=== PATIENT | female | born 1980 | race Caucasian/White ===

== ENCOUNTER → 2020-07-22 08:01 | Outpatient (CLI) | payer BC, SELFPAY ==
[2020-07-22 19:41] LABS: SARS-CoV-2 RNA PCR Negative
== END ==
PROVIDERS: Visit Provider Dermatology
DX: R05 Cough (principal); Z20.822 Contact with and (suspected) exposure to COVID-19
CPT/HCPCS: C9803; U0003; U0005

== ENCOUNTER 2022-09-23 12:32 | Outpatient (CLI) | payer OTHER, SELFPAY ==
[2022-09-23 18:16] LABS: Basophils Absolute Auto 0.1 K/mm3 (0.0-0.1); Basophils Percent Auto 1.1 % (0.2-1.2); Eosinophils Absolute Auto 0.2 K/mm3 (0-0.3); Eosinophils Percent Auto 2.8 % (0-4.4); Hematocrit 41.1 % (37.0-47.0); Hemoglobin 12.4 g/dL (12.0-15.0); Immature Granulocyte Absolute 0.02 K/mm3 (0.00-0.031); Immature Granulocyte Percent A 0.2 % (0-0.5); Lymphocytes Absolute Auto 3.08 K/mm3 (0.9-3.2); Lymphocytes Percent Auto 36.4 % (18.3-44.2); Mean Corpuscular HGB Conc 30.2 g/dl (32-36); Mean Corpuscular Hemoglobin 26.1 pg (26-34); Mean Corpuscular Volume 86.3 fl (80-100); Mean Platelet Volume 11.8 fl (7.4-10.4); Monocytes Absolute Auto 0.6 K/mm3 (0.1-0.6); Monocytes Percent Auto 7.6 % (2.6-8.5); Neutrophils Absolute Auto 4.4 K/mm3 (1.3-6.7); Neutrophils Percent Auto 51.9 % (45.5-73.1); Platelet Count Result 369 k/mm3 (150-375); Red Blood Count 4.76 M/mm3 (4.2-5.4); Red Cell Distribution Width 14.3 % (11.5-14.5); White Blood Count 8.5 K/mm3 (4.5-10.0)
[2022-09-23 18:24] LABS: Alanine Aminotransferase 24 U/L (6-35); Alkaline Phosphatase 71 U/L (38-126); Anion Gap 8 mmol/L (8-16); Aspartate Amino Transferase 45 U/L (14-36); Bilirubin,Total 0.6 mg/dL (0.2-1.3); Blood Urea Nitrogen 14 mg/dL (7-17); Calcium 8.6 mg/dL (8.4-10.2); Carbon Dioxide 25 mmol/L (22-30); Chloride 101 mmol/L (98-107); Cholesterol 179 mg/dL (0-200); Estimated Glomerular Filt Rate > 60; Glucose 69 mg/dL (65-110); HDL Direct 44 mg/dL; Potassium 3.7 mmol/L (3.4-5.0); Sodium 134 mmol/L (137-145); Triglycerides 86 mg/dL (<150)
[2022-09-23 18:36] LABS: LDL Cholesterol Direct 102 mg/dL
[2022-09-23 18:44] LABS: Free T4 Free Thyroxine 1.16 ng/mL (0.78-2.19); Vitamin D 25 Hydroxy 26.7 ng/mL
[2022-09-28 04:44] LABS: Thyroid Peroxidase Antibodies 549 IU/mL (<9)
[2022-09-28 04:54] LABS: Triiodothyronine T3 Free 3.4 pg/mL (2.3-4.2)
== END 2022-09-23 12:33 | disposition home or self-care (01) ==
LOC: ANHGOSHLAB 12:33
PROVIDERS: PCP Internal Medicine; Visit Provider Nurse Practitioner
DX: E07.9 Disorder of thyroid, unspecified (principal); Z13.220 Encounter for screening for lipoid disorders; Z86.2 Personal history of diseases of the blood and blood-forming organs and certain disorders involving the immune mechanism
CPT/HCPCS: 36415; 80053; 80061; 82306; 82728; 84439; 84443; 84481; 85025; 86376

== ENCOUNTER 2023-09-14 15:01 | Outpatient (CLI) | payer OTHER, SELFPAY | END 2023-09-14 15:02 | disposition home or self-care (01) | LOC: ANHGOSHLAB 15:02 | PROVIDERS: PCP Internal Medicine; Visit Provider Nurse Practitioner | DX: G47.61 Periodic limb movement disorder (principal) | CPT/HCPCS: 36415; 82728 ==

== ENCOUNTER 2024-01-10 07:42 | Emergency (ER) | payer OTHER, SELFPAY ==
--- NOTE | ~2024-01-10 | CT_ITS ---
EXAMINATION: CT abdomen pelvis w con DATE: 01/10/2024 09:11 INDICATION: Left upper quadrant abdominal pain. TECHNIQUE: Computed tomography (CT) of the abdomen and pelvis was performed with 100 mL Omnipaque 350 intravenous contrast. Automated exposure control and iterative reconstruction technique were employe d. The dose-length product was 743.25 mGy-cm. COMPARISON: None. FINDINGS: The visualized portions of the lung bases demonstrate mild atelectasis. No pleural effusion . The heart size is normal. No pericardial effusion. There are cysts in the liver measuring up to 3 m m. The pancreatic duct is dilated to 3 mm in the tail of the pancreas. The gallbladder, spleen, adren al glands, and kidneys are normal. There are surgical clips from tubal ligation. There are no dilated loops of bowel. The appendix measures 7 mm in diameter without adjacent fat stranding to suggest inf lammation. There are no pathologically enlarged lymph nodes. There is physiologic fluid in the pelvis . There is a 19 mm corpus luteum cyst in left ovary. There is moderate lower lumbar spondylosis. IMPRESSION: 1. Mildly dilated pancreatic duct in the tail of the pancreas, most likely chronic pancreatitis. Occu lt obstructing mass is not excluded. Consider MRCP without and with contrast. Reviewed, dictated and finalized at location A. IMPRESSION: 1. Mildly dilated pancreatic duct in the tail of the pancreas, most likely tape controlled machine stitcher lucy pancreatitis. Occult obstructing mass is not excluded. Consider MRCP withou t and with contrast.
[2024-01-10 07:43] VITALS: BP 136/80; PULSE 85; RESP 16; TEMP 36.7; O2SAT 100
[2024-01-10 08:17] LABS: Basophils Absolute Auto 0.1 K/mm3 (0.0-0.1); Basophils Percent Auto 1.2 % (0.2-1.2); Eosinophils Absolute Auto 0.3 K/mm3 (0-0.3); Eosinophils Percent Auto 4.1 % (0-4.4); Hematocrit 43.9 % (37.0-47.0); Hemoglobin 13.7 g/dL (12.0-15.0); Immature Granulocyte Absolute 0.02 K/mm3 (0.00-0.031); Immature Granulocyte Percent A 0.2 % (0-0.5); Lymphocytes Absolute Auto 2.42 K/mm3 (0.9-3.2); Lymphocytes Percent Auto 29.3 % (18.3-44.2); Mean Corpuscular HGB Conc 31.2 g/dl (32-36); Mean Corpuscular Volume 86.4 fl (80-100); Mean Platelet Volume 11.3 fl (7.4-10.4); Monocytes Absolute Auto 0.6 K/mm3 (0.1-0.6); Neutrophils Absolute Auto 4.8 K/mm3 (1.3-6.7); Neutrophils Percent Auto 58.2 % (45.5-73.1); Platelet Count Result 349 k/mm3 (150-375); Red Blood Count 5.08 M/mm3 (4.2-5.4); Red Cell Distribution Width 13.9 % (11.5-14.5); White Blood Count 8.3 K/mm3 (4.5-10.0)
[2024-01-10 08:21] LABS: Add Urine Microscopic? YES; Appearance Urine Clear (Clear); Bacteria Urine 3+ /hpf; Bilirubin Urine Negative (Negative); Blood Urine Negative (Negative); Color Urine Yellow (Yellow); Glucose Urine UA Negative (Negative); Ketones Urine Negative (Negative); Leukocyte Esterase Ur 1+ LEU/UL (Negative); Nitrate Urine Negative (Negative); Non Pathogenic Casts 0-2; Protein Urine Negative (Negative); Specific Grav Ur 1.023 (1.001-1.035); Squamous Epithelial Cell Urine Few /hpf (Few); Urobilinogen Urine 0.2 mg/dL (<2.0); pH Urine 7.5 (5.0-9.0)
--- NOTE | 2024-01-10 08:25 | ED.ABDPAIN ---
HPI - Abdominal Pain General Chief Complaint: Abdominal Pain Stated Complaint: abdominal pain Time Seen by Provider: 01/10/24 07:51 History of Present Illness HPI narrative: 43-year-old female presenting to the emergency department for evaluation for left upper quadrant pain. Patient states the symptoms started on Monday. Patient states symptoms are worsened with food. Patient does admit to drinking alcohol on the weekends but did not drink heavily this weekend. Patient had this been taking some ibuprofen and naproxen over the last few days. Patient denies any prior history of gastritis. Patient denies any prior history of kidney stones. Patient still has her gallbladder. Patient does complain of pain and nausea. Patient declined any medications for pain control Related Data Home Medications Medication Instructions Recorded Confirmed cetirizine 10 mg capsule (Zyrtec) 10 mg PO DAILY PRN 09/02/22 09/02/22 Allergies Allergy/AdvReac Type Severity Reaction Status Date / Time No Known Allergies Allergy Verified 01/10/24 07:42 Review of Systems Review of Systems: All systems reviewed & are unremarkable except as noted in HPI and below PMFSH Social History Social History (Updated 09/02/22 @ 14:36 by Dannielle Bashir, [facility]) Smoking status: Former smoker Tobacco type: e-cigarettes/vaping Additional smoking assessment comments: patient vapes Exam Narrative: APPEARANCE: Well appearing, no pain, no distress, well-nourished. HEAD: normocephalic, atraumatic. EYES: PERRLA/EOMI, conjunctivae clear. NOSE: Normal no drainage NECK: Supple. No adenopathy, no masses. RESPIRATORY: Airway patent, respirations nonlabored. Clear to auscultation bilaterally, no rales, rhonchi, wheezing. CARDIOVASCULAR: Regular rate and rhythm without murmurs rubs or gallops. ABDOMINAL: Left upper quadrant and epigastric tenderness to palpation MUSCULOSKELETAL: Moves all extremities. Strength/ROM intact, No edema, No calf tenderness. NEURO: Alert. Cranial nerves II through XII intact. Grossly intact SKIN: Warm, dry. Normal Color Course Course Emergency Course: Patient was up to the results of her workup and recommended MRCP. Patient's primary care office was called. Vital Signs Vital signs: Vital Signs Temperature 98.0 F 01/10/24 07:43 Pulse Rate 85 01/10/24 07:43 Respiratory Rate 16 01/10/24 07:43 Blood Pressure 136/80 01/10/24 07:43 Pulse Oximetry 100 01/10/24 07:43 Oxygen Delivery Room Air 01/10/24 07:43 Temperature 97.7 F 01/10/24 09:30 Pulse Rate 76 01/10/24 09:30 Respiratory Rate 16 01/10/24 09:30 Blood Pressure 130/80 01/10/24 09:30 Pulse Oximetry 100 01/10/24 09:30 Oxygen Delivery Room Air 01/10/24 07:43 MDM - Abdominal Pain MDM Narrative Medical decision making narrative: 43-year-old female presenting to the ED for evaluation of left upper quadrant pain. Patient was treated with Zofran and Protonix. Patient was afebrile with no leukocytosis and a stable hemoglobin of 13.7. Patient had a normal lipase and patient had no elevation of T bili AST ALT alk-phos. Patient did have bacteria in her urine but denies any urinary symptoms, urine culture was ordered. CT scan did show findings of chronic pancreatitis and did recommend an MRCP. I discussed the case with GI and they were comfortable with the patient having outpatient follow-up for the MRCP. I did call the primary care physician's office and they will help set up the outpatient MRCP. Patient was updated results of the workup patient was comfortable with plan for discharge and close follow-up. All questions concerns were addressed patient was in no distress at time of discharge back patient was advised on dietary restrictions. Differential Diagnosis Differential diagnosis: Likely abdominal pain, acute appendicitis, constipation, diverticulitis, endometriosis, gastroenteritis, pancreatitis and small bowel obstruction Lab
[2024-01-10 08:27] LABS: Alanine Aminotransferase 20 U/L (6-35); Albumin Level 4.4 g/dL (3.5-5.1); Alkaline Phosphatase 57 U/L (38-126); Anion Gap 11 mmol/L (4-12); Aspartate Amino Transferase 24 U/L (14-36); Bilirubin,Total 0.5 mg/dL (0.2-1.3); Blood Urea Nitrogen 18 mg/dL (7-17); Calcium 8.8 mg/dL (8.4-10.2); Carbon Dioxide 22 mmol/L (22-30); Chloride 102 mmol/L (98-107); Estimated Glomerular Filt Rate > 60; Glucose 86 mg/dL (65-110); Lipase 225 U/L (23-300); Potassium 4.1 mmol/L (3.4-5.0); Sodium 135 mmol/L (137-145)
[2024-01-10 08:30] VITALS: BP 132/78; PULSE 74; RESP 16; TEMP 36.6; O2SAT 100
[2024-01-10 08:44] LABS: BEDSIDEPREGUCG Negative
[2024-01-10] MEDS: ONDANSETRON INJ 4 MG/2 ML VIAL IV PUSH (08:48)
[2024-01-10] MEDS: PANTOPRAZOLE SODIUM IV 40 MG VIAL IV PUSH (08:48)
[2024-01-10] MEDS: ACETAMINOPHEN 500 MG TABLET 1000 MG PO (08:56)
[2024-01-10 09:30] VITALS: BP 130/80; PULSE 76; RESP 16; TEMP 36.5; O2SAT 100
== END 2024-01-10 10:12 | disposition home or self-care (01) ==
PROVIDERS: Emergency Provider Emergency Medicine; PCP Internal Medicine
DX: K86.1 Other chronic pancreatitis (principal); R10.12 Left upper quadrant pain; Z87.891 Personal history of nicotine dependence
CPT/HCPCS: 36415; 74177; 80053; 81001; 81025; 83690; 85025; 87086; 96374; 96375; 99284; A9270; J2405; J2470; Q9967

== ENCOUNTER 2024-01-29 09:55 | Outpatient (CLI) | payer OTHER, SELFPAY ==
--- NOTE | ~2024-01-29 | MR_ITS ---
EXAMINATION: MR MRCP wo/w con/w 3D wo ind DATE: 01/29/2024 11:14 INDICATION: Chronic pancreatitis TECHNIQUE: Magnetic resonance imaging (MRI) of the abdomen was performed without and with 15 mL Multi chong intravenous contrast. Sequences included coronal T2-weighted SS-FSE, coronal T2-weighted FS SS- FSE, coronal T2-weighted FS FIESTA, axial T2-weighted FS FIESTA, axial T2-weighted FIESTA, sagittal T 2-weighted SS-FSE, axial T1-weighted dual-echo FSPGR, axial T2-weighted SS-FSE, axial T1-weighted LAV A, axial T2-weighted STIR FSE. Thick-slab T2-weighted FRFSE-XL images were obtained for magnetic reso nance cholangiopancreatography (MRCP). Rotating maximum intensity projection 3-D reconstructions of t he volumetric data were created by the technologist. Postcontrast sequences included a time course of axial T1-weighted LAVA. COMPARISON: CT dated 01/10/2024 FINDINGS: ABDOMEN MRI: Heart size is normal. No pericardial or pleural effusion. Small amount of dependently layering sludge in the otherwise normal-appearing gallbladder. No evident cholelithiasis. Liver, spleen, bilateral a drenal glands and kidneys are normal. Again are a couple dilated pancreatic ducts at the tip of the t ail of the pancreas. No abnormal mass or lesions identified at the transition to the normal caliber m ain pancreatic duct at the body and more proximal tail of the pancreas. There is however an approxima tely 2.4 x 1.2 cm region at the tip of the tail surrounding a portion of the dilated ducts which demo nstrates slightly lower T1 signal and greater degree of enhancement in the remainder of the more prox imal pancreas. This region of soft tissue parallels the spleen terms of T1 and T2 signal intensity an d enhancement. Visualized portion of the bowels are unremarkable. No pathologically enlarged abdomina l lymphadenopathy. Mild thoracic and lumbar spondylosis. ABDOMEN MRCP: Common bile duct is normal in caliber measuring up to 5 mm in maximal diameter tapering the distal co mmon bile duct with no choledocholithiasis. Intrahepatic biliary tree is normal. The main pancreatic duct is normal with the exception of the previously noted dilated ducts at the tail of the pancreas. IMPRESSION: 1. 2.4 x 1.2 cm lesion at the tail of the pancreas surrounding a couple dilated ducts which differs i n signal and enhancement characteristics to the remainder of the pancreas more closely paralleling th at of the spleen. Differential would include pancreatic neoplasm either benign or malignant, ectopic splenic tissue or scarring as sequela of chronic pancreatitis. Typically pancreatic carcinoma demonst rates hypoenhancement relative to the pancreas and the location of malignancy would be expected to be centered at or proximal to the ductal transition point as opposed to around the dilated ducts. Would consider further evaluation of the lesion with endoscopic ultrasound, potentially with biopsy althou gh biopsy might prove challenging given the location of the lesion on the caudal margin of the vascul ature at the splenic hilum. Reviewed, dictated and finalized at location A. IMPRESSION: 1. 2.4 x 1.2 cm lesion at the tail of the pancreas surrounding a couple dilated ducts which differs in signal and enhancement characteristics to the remainder of the pancreas more closely paralleling that of the spleen. Differential woul d include pancreatic neoplasm either benign or malignant, ectopic splenic tissu e or scarring as sequela of chronic pancreatitis. Typically pancreatic carcinom a demonstrates hypoenhancement relative to the pancreas and the location of mal ignancy would be expected to be centered at or proximal to the ductal transitio n point as opposed to around the dilated ducts. Would consider further evaluati on of the lesion with endoscopic u
== END 2024-01-29 09:56 | disposition home or self-care (01) ==
LOC: ANHIMG 10:00
PROVIDERS: PCP Internal Medicine; Visit Provider Nurse Practitioner
DX: K86.1 Other chronic pancreatitis (principal)
CPT/HCPCS: 74183; 76376; A9577

== ENCOUNTER 2024-01-30 15:43 | Outpatient (CLI) | payer OTHER, SELFPAY ==
[2024-02-02 17:53] LABS: CA 19-9 3 U/mL (<34)
== END 2024-01-30 15:44 | disposition home or self-care (01) ==
PROVIDERS: PCP Internal Medicine; Visit Provider Nurse Practitioner
DX: Z94.4 Liver transplant status (principal); K86.9 Disease of pancreas, unspecified; Z98.890 Other specified postprocedural states
CPT/HCPCS: 36415; 86301

== ENCOUNTER 2024-09-08 08:43 | Emergency (ER) | payer OTHER, SELFPAY ==
--- OUTSIDE RECORDS SUMMARY | 2024-09-08 08:44 | XMS_ITS | Clinical Summary ---
Author Organization [facility] [employer] Address [address] [place] [address] Care Team Providers Care Senior Clinical Data Manager Name Role Phone Alejandro Betts DO Primary Care Provider [phone] Source Comments [facility],non-owned Affiliates and Associated Physician Practices is amultiple site organization consisting of ambulatory clinics and hospital sitesin [place], [place], [place] and [place]. This disclosure is being madepursuant to the Care Everywhere program and may not contain all information available regarding this patient. Last updated 18.[employer] [facility] Allergies No known active allergies Medications * Be aware that medications may not be up to date on this document. Alwaysverify current medications with the patient. 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 Family History Medical History Relation Name Comments CVA Father Cancer - Other Father Testicular ca ncer Hypertension Father Status: Alive COPD - Chronic Obstructive P ulmonary Disease Maternal Grandfather Cancer - Uterine Maternal Grandmother None Known Mother Status: Alive CAD (Coronary Artery Disease) Paternal Grandfather Alzheimer's Disease Paternal Grandmother Thyroid Disease Neg Hx Relation Name Status Comments Father Maternal Grandfather Maternal Grandmother Mother Paternal Grandfather Paternal Grandmother Social History Tobacco Use Types Packs/Day Years Used Date Smoking Tobacco: Former Cigarettes Smokeless Tobacco: Never Tobacco Cessation:Counseling Given: Not Answered Alcohol Use Standard Drinks/Week Comments Yes 0 (1 standard drink = 0.6 oz pur e alcohol) rare Sex and Gender Information Value Date Recorded Sex Assigned at Not on file Gender Identity Not on file Sexual Orientation Not on file Last Filed Vital Signs Vital Sign Reading Time Taken Comments Blood Pressure 144/99 02/09/2024 5:00 PM CDT Pulse 74 02/09/2024 5:00 PM CDT Temperature 36.4 C (97.6 F) 02/09/2024 4:28 PM CDT Respiratory Rate 17 02/09/2024 5:00 PM CDT Oxygen Saturation 92% 02/09/2024 5:00 PM CDT Inhaled Oxygen Concentration - - Weight 77.5 kg (170 lb 12.8 oz) 02/09/2024 1:15 PM CDT Height 144.8 cm (4' 9 ) 02/09/2024 1:15 PM CDT Body Mass Index 36.96 02/09/2024 1:15 PM CDT Plan of Treatment Health Maintenance Due Date Last Done Comments LIPID TESTING 1980 PAP SMEAR 1980 HIV SCREENING 01/27/1995 HEPATITIS C SCREENING 01/23/1998 DTAP/TDAP/TD VACCINES (1 - Tdap) 01/27/1999 HEPATITIS B VACCINE (1 of 3 - 19+ 3-dose series) 01/27/1999 COVID-19 VACCINE (2023-2 5 season) 2024 INFLUENZA VACCINE (#1) 2024 DEPRESSION SCREENING 06/05/2024 MAMMOGRAM 06/02/2025 06/02/2023, 06/02/2023, 02/06/2015 ZOSTER VACCINE (1 of 2) 01/27/2030 HIB VACCINE Aged Out No longer eligi ble based on patient's age to complete this topic HPV VACCINE Aged Out No longer eligi ble based on patient's age to complete this topic MENINGOCOCCAL (Group B) VACCINE SHARED DECISION-MAKING Aged Out No longer eligible based on patient's age to complete this topic MENINGOCOCCAL GROUPS A/C/Y/W VACCINE Aged Out No longer eligible b ased on patient's age to complete this topic PNEUMOCOCCAL VACCINE Aged Out No long er eligible based on patient's age to complete this topic Care Teams Senior Clinical Data Manager Relationship Specialty Start Date End Date Alejandro Betts DO [address] [place] [address] PCP - General Internal Medicine 02/02/24
--- OUTSIDE RECORDS SUMMARY | 2024-09-08 08:45 | XMS_ITS | Clinical Summary ---
Author Organization [facility] Address [address] [place] [id number] Care Team Providers Care Formstone Fitter Name Role Phone Alejandro Betts DO Primary Care Provider [phone] Allergies No known active allergies Medications cetirizine (ZyrTEC) 10 mg tablet Take 1 tablet (10 mg total) by mouth daily 06/06/2017 Active Lexapro 10 mg tablet 1 tablet (10 mg total) 02/24/2023 Active phentermine (ADIPEX-P) 37.5 mg tablet Take 1 tablet (37.5 mg total) by mouth daily 07/06/2023 Active Active Problems Problem Noted Date Diagnosed Date Vaginal wall cyst 02/13/2022 Menorrhagia with regular cycle 02/13/2022 History of abnormal cervical Pap smear History of viral infection 10/19/2013 Overview (09/09/2016): History of HPV infection Genital herpes simplex 10/19/2013 Overview (09/10/2016): Genital herpes Surgical History Surgery Date Site/Laterality Comments OTHER SURGICAL HISTORY 2011 : TUBAL LIGATION BREAST BIOPSY 06/19/2023 Left Medical History Medical History Date Comments Hx Other Medical Genital Herpes Hx Other Medical 2003 ; Outc ome: 40 week 6 lb(s) 7 oz Female Hx Other Medical 2011 ; Outc ome: 39 week Female Hx Other Medical Hx of abnormal pap Depression Anxiety Thyroid disease Dermatitis Family History Medical History Relation Name Comments Colon cancer Father Hypertension Father Hypertension; Prostate cancer Father Testicular cancer Father Cancer, Te sticular; Uterine cancer Maternal Grandmother Cance r, Uterine; Melanoma Other 1 uncle Leukemia Other 2 uncle Heart disease Paternal Grandfather Heart disease; Breast cancer Neg Hx Relation Name Status Comments Father Alive Maternal Grandmother Alive Other 1 uncle Other 2 uncle Paternal Grandfather Social History Tobacco Use Types Packs/Day Years Used Date Smoking Tobacco: Some Days Smokeless Tobacco: Current Tobacco Cessation:Ready to Q uit: Not Asked; Counseling Given: Not Answered Comments:Smoking History Packs/day: 0.2 Packs Alcohol Use Standard Drinks/Week Comments No 0 (1 standard drink = 0.6 oz pur e alcohol) Humiliation, Afraid, Rape, and Kick questionnair e Answer Date Recorded Within the last year, have y ou been afraid of your partner or ex-partner? No 03/01/2023 Within the last year, have y ou been humiliated or emotionally abused in other ways by your partner or ex-partner? No Within the last year, have y ou been kicked, hit, slapped, or otherwise physically hurt by your partner or ex-partner? No 03/01/2023 Within the last year, have y ou been raped or forced to have any kind of sexual activity by your partner or ex-partner? No 03/01/2023 Comments No Sex and Gender Information Value Date Recorded Sex Assigned at Not on file Legal Sex Female 9:15 AM TELETYPESETTER Gender Identity Female 06/02/2023 10:25 AM TELETYPESETTER Sexual Orientation Straight 06/02/2023 10 :25 AM TELETYPESETTER Obstetrics History Para Term AB IAB SAB Ectopic Multiple Livin g Live Births 2 2 2 2 Date Outcome GA Total Labor Labor/2nd/3rd Weight Sex Type Anes PTL Alayna A1 A5 Name Clin 2003 Term F Vag-Spo nt N 2011 Term F Vag-Spo nt Last Filed Vital Signs Vital Sign Reading Time Taken Comments Blood Pressure 124/87 06/19/2023 12:55 PM TELETYPESETTER Pulse 79 06/19/2023 12:55 PM TELETYPESETTER Temperature 2.7 C (36.8 F) 06/19/2023 12:55 PM TELETYPESETTER Respiratory Rate 18 06/19/2023 12:55 PM TELETYPESETTER Oxygen Saturation - - Inhaled Oxygen Concentration - - Weight 76.2 kg (168 lb) 07/27/2023 1:03 PM TELETYPESETTER Height 144.8 cm (4' 9 ) 07/27/2023 1:03 PM TELETYPESETTER Body Mass Index 36.35 07/27/2023 1:03 PM TELETYPESETTER Plan of Treatment Health Maintenance Due Date Last Done Comments Depression Screening 1980 Hepatitis C Screening 1980 DTaP/Tdap/Td Vaccine (1 - Tdap) 01/27/1991 Varicella Vaccines (1 of 2 - 13+ 2-dose series) 01/27/1993 Hepatitis B Screening 01/27/1998 Pneumococcal vaccine <65 (1 of 2 - PCV) 01/27/1999 Covid-19 Vaccine (2023-2 5 season) 2024 04/06/2021, 07/17/2020, 06/18/2020 Influenza Vaccine (#1) 2024 Cervical Cancer Screening 03/01/20242022, 01/17/2022 Regular Well Visit/Exam 18-64 03/01/2024, 01/17/2022 Breast Cancer Screening-Mammogram 06/02/2024 06/02/2023, 02/06/2015 HPV Vaccines Aged Out No longer eligi ble based on patient's age to complete this topic Medical Devices Implanted Type Area Electric Motor Control Assembler Device Identifier Shelf Expiration Date Model / Serial / Lot [facility] Mammomark Cormark Tissue Bowtie Marker Breast Biopsy Collagen [id number] - [id number] - [id number] Implanted:Qty: 1 on 06/19/2023 by Enrrique Ho MD at [facility] Breast Left: Breast [facility] [facility] 02/06/2024 [id number] / [id number] / Description:left lower outer breast area approx 4 to 5 oclock area mid to posterior depth 7 to 8 cmfn Procedures Procedure Name Priority Date/Time Associated Diagnosis Comments SCREENING MAMMOGRAM BILATERAL W CHUCHO Schedule Routine, Read Routine (OP Routine) 06/02/2023 2:26 PM TELETYPESETTER Encounter for screening mammogram for malignant neoplasm of breast PAP AND HPV, REFLEX TO HPV GENOTYPES Routine 03/01/2023 3:07 PM CDT from Last 3 Months or Most Recently Relevant to Health Maintenance Results * (ABNORMAL) Screening Mammogram Bilateral W Chucho (06/02/2023 2:26 PM TELETYPESETTER) Anatomical Region Laterality Modality Breast Bilateral Mammography 06/02/2023 3:07 PM TELETYPESETTER Impressions 06/02/2023 3:07 PM TELETYPESETTER 1. Left breast architectural distortion (with a few associated microcalcifications). Left diagnostic mammogram and diagnostic left breast ultrasound are recommended for further evaluation. The patient will be contacted. 2. No mammographic evidence of malignancy in the right breast. Recommend screening mammography of the right breast in one year. BI-RADS: 0 - Additional imaging evaluation is necessary. Electronically signed by: Enrrique Ho M.D. Narrative 06/02/2023 3:07 PM TELETYPESETTER EXAMINATION: SCREENING MAMMOGRAM BILATERAL W CHUCHO ORDERING HEALTHCARE PROVIDER: SUSIE OLSON HISTORY: Routine screening mammography. No documented history of breast surgery. COMPARISON: 02/06/2015 TECHNIQUE: CC and MLO views of the bilateral breasts were obtained with digital technique using breast tomosynthesis with C view. Computer aided detection was utilized. FINDINGS: DENSITY: There are scattered fibroglandular elements in the bilateral breasts. BREASTS: There is an area of architectural distortion (with a few associated microcalcifications) in the left breast at approximately the 5 o'clock position, mid to posterior depth. This is largely similar in appearance to the prior mammogram from February 2015 but is suspicious and could represent a radial scar or potentially a slow-growing malignancy. There is no other suspicious finding in either breast on mammogram. us Susie Olson COREMAKER SUPERVISOR IMG MAMMO PROCEDURES Final Result * Pap and HPV, reflex to HPV Genotypes (03/01/2023 3:07 PM CDT) Clinical indication Comment [facility] - 01 Comment:NEGATIVE FOR INTRAEP ITHELIAL LESION OR MALIGNANCY. Specimen adequacy: Comment [facility] - 01 Comment: Satisfactory for evaluation. Endocervical and/or squamous metaplastic cells (endocervical component) are present. Clinician provided ICD10 Comment [facility] - 01 Comment:Z01.419 Performed by Comment [facility] - 01 Comment:Smith Renteria Cytot echnologist (ASCP) . . [facility] - 01 Note: Comment [facility] - 01 Comment: The Pap smear is a screening test designed to aid in the detection of premalignant and malignant conditions of the uterine cervix. It is not a diagnostic procedure and should not be used as the sole means of detecting cervical cancer. Both false-positive and false-negative reports do occur. Test methodology Comment [facility] - 01 Comment: This liquid based ThinPrep(R) pap test was screened with the use of an image guided system. HPV Aptima Negative Negative [facility] 02 Comment: This nucleic acid amplification test detects fourteen high-risk HPV types (16,18,31,33,35,39,45,51,52,56,58,59,66,68) without differentiation. HPV Genotype Reflex Comment [facility] - Comment:Criteria not met, HP V Genotype not performed. 03/01/2023 3:07 PM CDT 03/01/2023 Narrative [facility] - 03/04/2023 2:17 PM CDT Performed at: - [address] [id number] Member Services Coordinator: Maddie [place] MD, Phone: [phone] Performed at: - [address] [id number] Member Services Coordinator: Maddie [place] MD, Phone: [phone] Specimen Comment: Source.............Cervix;Endocervix Specimen Comment: No. of containers..01 ThinPrep Vial us Susie Olson NP LAB CYTOLOGY ORDERABLES Fin al Result [facility] - 01 [facility] 02 from Last 3 Months or Most Recently Relevant to Health Maintenance Insurance [facility] Care Teams Formstone Fitter Relationship Specialty Start Date End Date Alejandro Betts DO PCP - General Internal Medicine 03/01/23
--- OUTSIDE RECORDS SUMMARY | 2024-09-08 08:45 | XMS_ITS | Referral Summary ---
Author Organization [facility] Address [address] [place] [id number] Care Team Providers Care Chainer Name Role Phone Alejandro Betts DO Primary Care Provider [phone] Allergies No known active allergies Medications cetirizine [...] herpes simplex 10/19/2013 Overview (09/10/2016): Genital herpes Social History Tobacco Use Types Packs/Day Years [...] on file Legal Sex Female 9:15 AM ORACLE PROGRAMMER ANALYST Gender Identity Female 06/02/2023 10:25 AM ORACLE PROGRAMMER ANALYST Sexual Orientation Straight 06/02/2023 10 :25 AM ORACLE PROGRAMMER ANALYST Last Filed Vital Signs Vital Sign Reading Time Taken Comments Blood Pressure 124/87 06/19/2023 12:55 PM ORACLE PROGRAMMER ANALYST Pulse 79 06/19/2023 12:55 PM ORACLE PROGRAMMER ANALYST Temperature 2.7 C (36.8 F) 06/19/2023 12:55 PM ORACLE PROGRAMMER ANALYST Respiratory Rate 18 06/19/2023 12:55 PM ORACLE PROGRAMMER ANALYST Oxygen Saturation - - Inhaled Oxygen Concentration - - Weight 76.2 kg (168 lb) 07/27/2023 1:03 PM ORACLE PROGRAMMER ANALYST Height 144.8 cm (4' 9 ) 07/27/2023 1:03 PM ORACLE PROGRAMMER ANALYST Body Mass Index 36.35 07/27/2023 1:03 PM ORACLE PROGRAMMER ANALYST Plan of Treatment Not on file Medical Devices Implanted Type Area Client Liaison Device Identifier Shelf Expiration Date Model / Serial / Lot [employer] Mammomark Cormark Tissue Bowtie Marker Breast Biopsy Collagen [id number] - [id number] - [id number] Implanted:Qty: 1 on 06/19/2023 by Enrrique Ho MD at [facility] Breast Left: Breast [employer] 02/06/2024 [id number] / [id number] / Description:left lower outer breast area approx 4 to 5 oclock area mid to posterior depth 7 to 8 cmfn Procedures Procedure Name Priority Date/Time Associated Diagnosis Comments SCREENING MAMMOGRAM BILATERAL W CHUCHO Schedule Routine, Read Routine (OP Routine) 06/02/2023 2:26 PM ORACLE PROGRAMMER ANALYST Encounter for screening mammogram for malignant neoplasm of breast PAP AND HPV, REFLEX TO HPV GENOTYPES Routine 03/01/2023 3:07 PM CDT from Last 3 Months or Most Recently Relevant to Health Maintenance Results * (ABNORMAL) Screening Mammogram Bilateral W Chucho (06/02/2023 2:26 PM ORACLE PROGRAMMER ANALYST) Anatomical Region Laterality Modality Breast Bilateral Mammography 06/02/2023 3:07 PM ORACLE PROGRAMMER ANALYST Impressions 06/02/2023 3:07 PM ORACLE PROGRAMMER ANALYST 1. Left breast architectural distortion (with a [...] Enrrique Ho M.D. Narrative 06/02/2023 3:07 PM ORACLE PROGRAMMER ANALYST EXAMINATION: SCREENING MAMMOGRAM BILATERAL W CHUCHO ORDERING [...] either breast on mammogram. us Susie Olson DRIVER TRAINEE IMG MAMMO PROCEDURES Final Result * Pap [...] Performed by Comment [facility] - 01 Comment:Smith Renteria, Cytot echnologist (ASCP) . . [facility] - [...] do occur. Test methodology Comment [facility] - Comment: This liquid based ThinPrep(R) pap test [...] 03/04/2023 2:17 PM CDT Performed at: - [address] [id number] Valuer: Maddie Emmanuel MD, Phone: [phone] Performed at: 02 - [address], [place] [id number] Valuer: Maddie Emmanuel MD, Phone: [phone] Specimen Comment: Source.............Cervix;Endocervix Specimen Comment: No. of containers..01 ThinPrep Vial us Susie Olson NP LAB CYTOLOGY ORDERABLES Fin al [facility]AREN 02 from Last 3 Months or Most Recently Relevant to Health Maintenance Insurance [facility] Address: [place] [id number] [facility] [employer] Address: [place] [address] [facility] Address: [address] [address] [place] [address] Care Teams Chainer Relationship Specialty Start Date End Date Alejandro Betts DO PCP - General Internal Medicine 03/01/23
[2024-09-08 08:48] VITALS: BP 113/72; PULSE 74; RESP 20; TEMP 36.9; O2SAT 98
--- NOTE | 2024-09-08 08:56 | ED.WOUNDLAC ---
HPI - Wound/Laceration General Chief Complaint: Wound/Laceration Stated Complaint: Laceration to Forehead Time Seen by Provider: 09/08/24 08:56 Source: patient, family, RN notes reviewed and old records reviewed Mode of arrival: ambulatory Limitations: no limitations History of Present Illness HPI narrative: 44 year old female accompanied by presents to express care with complaints of getting out of bed this morning and she tripped and hit her forehead region along her left eyebrow on night stand sustaining 2cm linear laceration at left outer eyebrow bleeding is controlled. Patient reports that she washed area with soap and water and applied wash cloth to area with some pressure to wound. Patient reports that she is unsure of when last tetanus was received. Patient reports no dizziness or any LOC at time of injury and that she takes no daily blood thinners. Onset (ago): hour(s) (this morning at 0730) Location: face (along left eyebrow) Place: home Patient tetanus UTD: No Associated symptoms: none Treatments prior to arrival: other (cleansed with soap and water and clean wash cloth applied to site with some pressure) Related Data Allergies Allergy/AdvReac Type Severity Reaction Status Date / Time No Known Allergies Allergy Verified 01/30/24 14:43 Review of Systems Review of Systems: CONSTITUTIONAL: Denies fever, chills, or sweats. CARDIOVASCULAR: Denies chest pain, palpitations, or edema. RESPIRATORY: Denies cough or dyspnea. SKIN: Reports laceration along distal aspect of left eyebrow gaping with no acute bleeding noted MUSCULOSKELETAL: Denies musculoskeletal pain NEUROLOGIC: Denies numbness, or weakness. All systems reviewed & are unremarkable except as noted in HPI and below PMFSH Surgical History Surgical History History of tubal ligation Social History Social History Smoking status: Former smoker Tobacco type: e-cigarettes/vaping Additional smoking assessment comments: patient vapes Alcohol intake: current Alcohol use details: social Substance use: never Living arrangements: with family Gender identity (if verbalized by the patient): Female Comments At time of signature, agree with nursing past medical, surgical, social and family history. There is no relevant family history pertinent to the presenting complaint Exam Narrative: GENERAL: Well-appearing, well-nourished, and in no acute distress. HEAD: Normocephalic, atraumatic. NECK: Supple. CHEST: Clear to auscultation. No respiratory distress.SAO2 98% on room air HEART: Regular rate and rhythm. No murmur heard. Normal peripheral pulses. EXTREMITIES: Normal range of motion. No edema. SKIN: Warm, dry, no rash. Reports 2 cm laceration to the left distal eyebrow area gaping with no acute bleeding noted, see procedure note. NEURO: No focal deficits. Alert and oriented x3. Course Course Level of Care: Express Care Visit Vital Signs Vital signs: Vital Signs Temperature 36.9 C 09/08/24 08:48 Pulse Rate 74 09/08/24 08:48 Respiratory Rate 20 09/08/24 08:48 Blood Pressure 113/72 09/08/24 08:48 Pulse Oximetry 98 09/08/24 08:48 Oxygen Delivery Room Air 09/08/24 08:48 Temperature 36.9 C 09/08/24 08:48 Pulse Rate 74 09/08/24 08:48 Respiratory Rate 20 09/08/24 08:48 Blood Pressure 113/72 09/08/24 08:48 Pulse Oximetry 98 09/08/24 08:48 Oxygen Delivery Room Air 09/08/24 08:48 reviewed Procedures Laceration eyebrow: Date: 09/08/24 Time: 09:15 Site: face (eyebrow region) Side (If applicable): left Size (cm): 2 Description: linear Depth: simple, single layer Local Anesthetic: lidocaine 1% Amount of anesthesia used (mL): 5 Pre-repair: wound explored, irrigated, irrigated extensively and other (cleansed with wound cleansing solution) ====== Skin Level ====== Skin layer closed with: nylon Size (cm): 5-0 Number of sutures: 6 Technique: simple, interrupted ====== Subcutaneous Layer ====== ====== Muscle Layer ====== ====== Tendon Layer ====== Dressing: w Laceration to the left eyebrow localized with 5 ml of Lidocaine 1% solution and 6 sutures using Ethilon 5.0 applied simple interrupted. Patient tolerated well with triple antibiotic ointment applied over sutures and left open to air. MDM - Wound/Laceration MDM Narrative Medical decision making narrative: Wound explored for foreign body and copious irrigation provided with no evidence of FB. Discussed the potential of retained foreign body with the patient and signs/symptoms that should prompt the patient to immediately go to the ED for reevaluation. The wound was explored and no foreign bodies were found. There was no evidence of tendon or nerve lacerations. The wound was closed per procedure note. A sterile dressing was then applied and anticipatory guidance was provided. Tetanus prophylaxis was given with patient not having any reaction. Differential Diagnosis Differential diagnosis: Likely laceration, abrasion, avulsion of skin and other (Laceration to left eyebrow) Medical Records Attestation: I reviewed the patient's medical records. Critical Care Time Critical Care Time Critical Care Time: No Discharge Plan Discharge Clinical Impression: Laceration of eyebrow, left Qualifiers: Encounter type: initial encounter Qualified Code(s): S01.112A - Laceration without foreign body of left eyelid and periocular area, initial encounter Patient Disposition: Home, Self-Care Condition: Stable Instructions: Facial Laceration (ED) Additional Instructions: Keep the area clean and dry No continuous water contact like dishes or swimming You may bathe and wash you hair caution with hair products or lotions Antibiotic ointment to the area 1 times a day bacitracin dressing of choice or may leave open to air watch for infection--redness, swelling, drainage follow up with PCP for suture/staple in removal 7 days recheck with PCP if further concerns or problems If your symptoms persist, change or worsen significantly before you can contact your personal physician then please, without delay, go to the emergency department for further evaluation. Follow-up with PCP in 7-10 days or sooner if needed Patient Language: Occitan Prescriptions: No Action escitalopram oxalate [Lexapro] 10 mg tablet 10 mg PO DAILY Qty: 30 5RF hydroxyzine HCl 25 mg tablet See Rx Instructions PO DAILY PRN (Reason: itching) Qty: 180 2RF Rx Instructions: 1-2 tablets orally daily PRN; Follow-up/Referrals: Alejandro Betts DO [Primary Care Provider] - Time of Disposition: 09:45 Quality Negro Coma Scale Eyes: Open Verbal: Oriented and Alert Motor: Follows Commands [place] Coma Total Score: 15
[2024-09-08] MEDS: TETANUS,DIPHTHERIA,AC PERTUSSIS ADULT (0.5 ML) BOOSTRIX IM (09:55)
== END 2024-09-08 10:05 | disposition home or self-care (01) ==
PROVIDERS: Emergency Provider Registered Nurse; PCP Internal Medicine
DX: S01.112A Laceration without foreign body of left eyelid and periocular area, initial encounter (principal); W01.190A Fall on same level from slipping, tripping and stumbling with subsequent striking against furniture, initial encounter; Z23 Encounter for immunization; F17.290 Nicotine dependence, other tobacco product, uncomplicated
CPT/HCPCS: 12011; 90471; 90715; 99212; G0463

== ENCOUNTER 2025-03-13 10:46 | Outpatient (CLI) | payer OTHER, SELFPAY ==
--- NOTE | ~2025-03-13 | XR_ITS ---
EXAMINATION: XR ankle LT min 3V, 03/13/2025 10:52 CDT HISTORY: Unspecified injury of left ankle, rolled last night COMPARISON: No comparisons available. Findings: No acute fracture or malalignment. No significant degenerative changes. Soft tissues unremarkable. Impression: No acute fracture or malalignment. Reviewed, dictated and finalized at location P. Impression: No acute fracture or malalignment.
== END 2025-03-13 10:47 | disposition home or self-care (01) ==
LOC: GOSHIMG 10:47
PROVIDERS: PCP Internal Medicine; Visit Provider Clinical Nurse Specialist
DX: S99.912A Unspecified injury of left ankle, initial encounter (principal); X58.XXXA Exposure to other specified factors, initial encounter
CPT/HCPCS: 73610